=== PATIENT | male | born 1950 | race Caucasian/White ===

== ENCOUNTER → 2016-07-07 | Outpatient (CLI) | payer MEDICARE ==
[~2016-07-07] MED LIST: TORADOL10 MG PO
== END | disposition home or self-care (01) ==
LOC: RAD 07-06 08:46
DX: M51.36 Other intervertebral disc degeneration, lumbar region (principal); M16.0 Bilateral primary osteoarthritis of hip; M54.41 Lumbago with sciatica, right side; G89.29 Other chronic pain; R20.0 Anesthesia of skin; M25.78 Osteophyte, vertebrae

== ENCOUNTER → 2016-10-01 | Outpatient (CLI) | payer MEDICARE | END | disposition home or self-care (01) | LOC: CARD 09:00 | DX: E11.9 Type 2 diabetes mellitus without complications (principal); Z79.899 Other long term (current) drug therapy ==

== ENCOUNTER 2016-12-22 17:08 | Emergency (ER) | payer OTHER, MEDICARE ==
[~2016-12-22] VITALS: Wt 115.2 kg
[2016-12-22] MEDS ORDERED: CYCLOBENZAPRINE5 M3 PO (19:47)
[2016-12-22] MEDS ORDERED: Motrin,Rufen800 MG PO (19:47)
== END 2016-12-22 23:01 | disposition home or self-care (01) ==
LOC: ED 17:08
DX: S16.1XXA Strain of muscle, fascia and tendon at neck level, initial encounter (principal); Z91.018 Allergy to other foods; V43.52XA Car driver injured in collision with other type car in traffic accident, initial encounter; Y93.89 Activity, other specified; Y92.413 State road as the place of occurrence of the external cause; Y99.8 Other external cause status

== ENCOUNTER → 2017-01-25 | Outpatient (CLI) | payer OTHER ==
[~2017-01-25] MED LIST changes: +CYCLOBENZAPRINE5 M3 PO; +Motrin,Rufen800 MG PO
== END ==
LOC: US 14:30
DX: N43.2 Other hydrocele (principal); I86.1 Scrotal varices; N50.3 Cyst of epididymis

== ENCOUNTER → 2018-07-21 | Outpatient (CLI) | payer MEDICARE | END | disposition home or self-care (01) | LOC: US 06-15 09:30 | DX: M79.661 Pain in right lower leg (principal); R60.0 Localized edema ==

== ENCOUNTER → 2019-04-23 | Outpatient (CLI) | payer MEDICARE ==
--- NOTE | 2019-04-23 15:55 | NUR ---
SPEECH PATHOLOGY Outpatient MBS completed as per orders to determine candidacy for oral feeding. Medical history obtained from retirement records includes anoxic brain damage, pneumonia, respiratory failure, past tracheostomy, dysphagia, G-tube. Patient has been weaned from trach. He remains NPO and reported that he has been fed by tube since Nov 05, 2018. Patient was alert and able to follow commands. Speech was moderately dysarthric requiring careful listening. Oral exam revealed presence of natural teeth with top back teeth missing. Buccal skills were moderately reduced in strength and lingual skills were moderately reduced in ROM and coordination. Patient was able to volitionally swallow but volitional cough was weak. He was assessed with puree, soft solid and liquids thickened to nectar and honey consistency taken by cup. Results revealed a mild oral and moderate pharyngeal stage dysphagia characterized by slow mastication, mildly reduced tongue to posterior pharyngeal wall contact resulting in pooling in the valleculae. Patient was aware of residue and initiated a secondary swallow which cleared the pharynx. Aspiration occurred during the swallow with thick liquids, with coughing elicited with nectar liquid. Aspiration was silent with honey thick liquid. Recommend patient begin small amounts of pleasure foos consisting of puree and pudding thick liquids. Recommend upright positioning, small bites and sips, use of double swallows and monitoring for s/s aspiration. Results and indu. were shared with patient and he verbalized understanding. A written copy of indu. was provided for education of retirement staff. Follow up therapy is recommended at the [facility] to ensure safety of intake and progression of diet if tolerated. Dictated report to follow. Thank you for this referral. LUPILLO JACKSON MS[employer]-FOLDER GLUER OPERATOR
== END | disposition home or self-care (01) ==
LOC: RAD/SH 13:27
DX: R13.19 Other dysphagia (principal)

== ENCOUNTER 2019-09-16 13:51 | Inpatient (IN) | payer MEDICARE ==
[~2019-09-16] VITALS: Ht 182.9 cm; Wt 94.9 kg
[2019-09-16] VITALS (7 sets, daily range): BP systolic 81–91; BP diastolic 46–57
[2019-09-16 14:32] LABS: HEMATOCRIT 39.6 % (42.0-52.0); MEAN CELL VOLUME 86.8 fl (80.0-94.0); MEAN CORPUSCULAR HGB 27.9 pg (27.0-31.0); MEAN CORPUSCULAR HGB CONC 32.1 g/dl (33.0-37.0); MEAN PLATELET VOLUME 9.9 fl (9.6-12.3); PLATELET COUNT AUTOMATED 249 10*3/uL (130-400); RED BLOOD COUNT 4.56 10*6/uL (4.50-5.90); RED CELL DISTRI WIDTH 15.9 % (0-14.5); WHITE BLOOD COUNT 18.3 10*3/uL (4.8-10.8)
[2019-09-16 14:49] LABS: BASOPHILS 1 % (0-1); PLATELET SUFFICIENCY NORMAL (NORMAL); TOTAL CELLS COUNTED 100 #CELLS
[2019-09-16 14:52] LABS: ALBUMIN 2.6 gm/dl (3.1-4.5); ALKALINE PHOSPHATASE 77 U/L (45-117); BUN 22 mg/dl (7-24); CHLORIDE 100 mmol/L (98-107); CREATININE 1.18 mg/dL (0.70-1.30); POTASSIUM 4.4 mmol/L (3.5-5.1); SGOT/AST 28 IU/L (3-35); SGPT/ALT 51 U/L (12-78); SODIUM 135 mmol/L (136-145); TOTAL PROTEIN 7.8 gm/dL (6.4-8.2)
[2019-09-16 15:15] LABS: BILIRUBIN NEGATIVE (NEGATIVE); CLARITY CLOUDY (CLEAR); COLOR YELLOW (YELLOW); GLUCOSE NEGATIVE (NEGATIVE); KETONE NEGATIVE (NEGATIVE); SPECIFIC GRAVITY 1.005 (1.005-1.030)
[2019-09-16 15:16] LABS: BACTERIA 4+; BLOOD 2+ (NEGATIVE); LEUKO ESTERASE 2+ (NEGATIVE); MUCOUS 1+; NITRITE NEGATIVE (NEGATIVE); PH 8.5 (5.0-9.0); TRIP PHOS CRYSTALS 1+; UROBILINOGEN 0.2 E.U./dl (0.2-1.0); WBC TNTC wbc/hpf (0-5)
[2019-09-16] MEDS ORDERED: AVPAK AZITHROM250 MG PO (18:55)
[2019-09-16] MEDS ORDERED: CEFDINIR250 MG/5 M PEG (18:56)
[2019-09-16] MEDS ORDERED: Ipratropium Brom3 ML INH (18:57)
[2019-09-16] MEDS ORDERED: LANSOPRAZOLE30 MG PO (18:59)
[2019-09-16] MEDS ORDERED: TRAZODONE50 MG PO (18:59)
[2019-09-16] MEDS ORDERED: ZESTRIL10 MG PO (19:00)
[2019-09-16] MEDS ORDERED: PROZAC10 MG PO (19:02)
[2019-09-16] MEDS ORDERED: METOCLOPRAMIDE H5 M2 PO (19:03)
[2019-09-16] MEDS ORDERED: LIPITOR20 MG PO (19:03)
[2019-09-16] MEDS ORDERED: TYLENOL325 M2 PO (20:52)
[2019-09-16] MEDS ORDERED: VENTOLIN 02.5 MG/3 M INH (20:54)
[2019-09-16] MEDS ORDERED: ANTIFUNGAL C14.18 GM T (20:55)
[2019-09-16] MEDS ORDERED: BASAG SOL SC (21:02)
[2019-09-16] MEDS ORDERED: DULCOLAX10 M1 R (21:03)
[2019-09-16] MEDS ORDERED: CALCIUM 500 MG1 EACH PEG (21:06)
[2019-09-16] MEDS ORDERED: VITAMIN D3125 MCG PEG (21:08)
[2019-09-16] MEDS ORDERED: DOK100 M1 PEG (21:09)
[2019-09-16] MEDS ORDERED: FLEET ENEMA EX230 M1 R (21:18)
[2019-09-16] MEDS ORDERED: AMMONIUM LACTA385 GM T (21:20)
[2019-09-16] MEDS ORDERED: LIDOCAINE PAIN1 EACH T (21:22)
[2019-09-16] MEDS ORDERED: MELATONIN5 M1 PEG (21:23)
[2019-09-16] MEDS ORDERED: MOM30 M1 PEG (21:24)
[2019-09-16] MEDS ORDERED: NORCO 5-325 TA1 EACH PO (21:25)
[2019-09-16] MEDS ORDERED: PERIDEX118 ML MM (21:25)
[2019-09-16] MEDS ORDERED: ZOFRAN4 MG PO (21:27)
[2019-09-17] VITALS (7 sets, daily range): BP systolic 92–107; BP diastolic 46–70
[2019-09-17 05:20] LABS: BUN 23 mg/dl (7-24); CHLORIDE 105 mmol/L (98-107); CREATININE 0.99 mg/dL (0.70-1.30); POTASSIUM 4.2 mmol/L (3.5-5.1); SODIUM 137 mmol/L (136-145)
[2019-09-17 05:26] LABS: THYROID STIM HORMONE (HS) 0.839 uIU/ml (0.358-4.75)
[2019-09-17 06:23] LABS: BASO # 0.1 10*3/uL (0.0-0.1); BASO % 0.5 % (0.0-1.0); EOS % 0.1 % (1.0-4.0); HEMATOCRIT 38.2 % (42.0-52.0); LYMPH # 1.1 10*3/uL (1.3-4.4); LYMPH % 9.6 % (27.0-41.0); MEAN CELL VOLUME 88.8 fl (80.0-94.0); MEAN CORPUSCULAR HGB 27.9 pg (27.0-31.0); MEAN CORPUSCULAR HGB CONC 31.4 g/dl (33.0-37.0); MEAN PLATELET VOLUME 10.9 fl (9.6-12.3); MONO # 1.1 10*3/uL (0.1-1.0); MONO % 9.7 % (3.0-9.0); NEUT # 9.4 10*3/uL (2.3-7.9); NEUT % 79.5 % (47.0-73.0); PLATELET COUNT AUTOMATED 250 10*3/uL (130-400); WHITE BLOOD COUNT 11.8 10*3/uL (4.8-10.8)
[2019-09-17 20:56] LABS: BILIRUBIN NEGATIVE (NEGATIVE); BLOOD 3+ (NEGATIVE); CLARITY CLOUDY (CLEAR); COLOR YELLOW (YELLOW); GLUCOSE NEGATIVE (NEGATIVE); KETONE NEGATIVE (NEGATIVE); LEUKO ESTERASE 3+ (NEGATIVE); NITRITE NEGATIVE (NEGATIVE); UROBILINOGEN 0.2 E.U./dl (0.2-1.0)
[2019-09-17 21:01] LABS: RBC 51-100 rbc/hpf (0-2); WBC 51-100 wbc/hpf (0-5)
[2019-09-17 21:02] LABS: BACTERIA 4+; MUCOUS 1+
[2019-09-18 04:00] VITALS: BP 112/54; BP 112/68
[2019-09-18 07:02] LABS: BASO # 0.1 10*3/uL (0.0-0.1); BASO % 0.8 % (0.0-1.0); EOS # 0.1 10*3/uL (0.0-0.4); EOS % 1.6 % (1.0-4.0); HEMATOCRIT 39.5 % (42.0-52.0); LYMPH # 0.9 10*3/uL (1.3-4.4); MEAN CELL VOLUME 89.4 fl (80.0-94.0); MEAN CORPUSCULAR HGB 27.8 pg (27.0-31.0); MEAN CORPUSCULAR HGB CONC 31.1 g/dl (33.0-37.0); MEAN PLATELET VOLUME 10.6 fl (9.6-12.3); MONO % 16.6 % (3.0-9.0); NEUT # 4.1 10*3/uL (2.3-7.9); NEUT % 65.5 % (47.0-73.0); PLATELET COUNT AUTOMATED 247 10*3/uL (130-400); RED BLOOD COUNT 4.42 10*6/uL (4.50-5.90); RED CELL DISTRI WIDTH 15.7 % (0-14.5); WHITE BLOOD COUNT 6.2 10*3/uL (4.8-10.8)
[2019-09-18 07:31] LABS: ALBUMIN 2.2 gm/dl (3.1-4.5); ALKALINE PHOSPHATASE 84 U/L (45-117); BUN 16 mg/dl (7-24); CHLORIDE 106 mmol/L (98-107); CREATININE 0.56 mg/dL (0.70-1.30); POTASSIUM 4.1 mmol/L (3.5-5.1); SGOT/AST 23 IU/L (3-35); SGPT/ALT 51 U/L (12-78); SODIUM 140 mmol/L (136-145); TOTAL PROTEIN 7.3 gm/dL (6.4-8.2)
[2019-09-18 08:00] VITALS: BP 104/66
[2019-09-18 12:00] VITALS: BP 113/72
[2019-09-18 16:00] VITALS: BP 114/64
[2019-09-18 20:00] VITALS: BP 107/63
[2019-09-19] VITALS: BP 110/60
[2019-09-19 05:14] LABS: BUN 14 mg/dl (7-24); CHLORIDE 108 mmol/L (98-107); CREATININE 0.55 mg/dL (0.70-1.30); SODIUM 143 mmol/L (136-145)
[2019-09-19 06:15] LABS: BASO # 0.1 10*3/uL (0.0-0.1); BASO % 1.2 % (0.0-1.0); EOS # 0.2 10*3/uL (0.0-0.4); EOS % 3.8 % (1.0-4.0); HEMATOCRIT 36.8 % (42.0-52.0); LYMPH % 15.8 % (27.0-41.0); MEAN CELL VOLUME 89.3 fl (80.0-94.0); MEAN CORPUSCULAR HGB 27.2 pg (27.0-31.0); MEAN CORPUSCULAR HGB CONC 30.4 g/dl (33.0-37.0); MEAN PLATELET VOLUME 10.6 fl (9.6-12.3); MONO # 0.7 10*3/uL (0.1-1.0); MONO % 10.7 % (3.0-9.0); NEUT # 4.1 10*3/uL (2.3-7.9); NEUT % 67.8 % (47.0-73.0); PLATELET COUNT AUTOMATED 279 10*3/uL (130-400); RED BLOOD COUNT 4.12 10*6/uL (4.50-5.90); RED CELL DISTRI WIDTH 15.9 % (0-14.5); WHITE BLOOD COUNT 6.1 10*3/uL (4.8-10.8)
[2019-09-19 08:00] VITALS: BP 110/68
[2019-09-19 16:00] VITALS: BP 109/64
[2019-09-19 20:00] VITALS: BP 128/75
[2019-09-20] VITALS: BP 116/61
[2019-09-20 08:00] VITALS: BP 121/80
[2019-09-20] MEDS ORDERED: NORCO 5-325 TA1 EACH PO (09:19)
[2019-09-20] MEDS ORDERED: CEFUROXIME AXE250 MG PO (09:19)
[2019-09-20] MEDS ORDERED: Nystatin 100,000 UNI PO (09:19)
[2019-09-20 12:00] VITALS: BP 124/72
== END 2019-09-20 13:49 | disposition other institution (70) | DRG 871 ==
LOC: ED 13:51 → EDHOLD 16:32 → 4E 16:32 → EDHOLD 17:02 → 4E 18:37
PROVIDERS: Emergency Medicine; Internal Medicine; ADMIT Family Medicine
DX: A41.9 Sepsis, unspecified organism (principal); E43 Unspecified severe protein-calorie malnutrition; T83.511A Infection and inflammatory reaction due to indwelling urethral catheter, initial encounter; E87.1 Hypo-osmolality and hyponatremia; N39.0 Urinary tract infection, site not specified; R65.20 Severe sepsis without septic shock; E11.65 Type 2 diabetes mellitus with hyperglycemia; Z20.828 Contact with and (suspected) exposure to other viral communicable diseases; D64.9 Anemia, unspecified; K21.9 Gastro-esophageal reflux disease without esophagitis; J44.9 Chronic obstructive pulmonary disease, unspecified; E78.5 Hyperlipidemia, unspecified; D50.9 Iron deficiency anemia, unspecified; G89.29 Other chronic pain; I10 Essential (primary) hypertension; E87.8 Other disorders of electrolyte and fluid balance, not elsewhere classified; F32.9 Major depressive disorder, single episode, unspecified; B96.4 Proteus (mirabilis) (morganii) as the cause of diseases classified elsewhere; Z79.4 Long term (current) use of insulin; Z93.1 Gastrostomy status; Z87.820 Personal history of traumatic brain injury; Z86.74 Personal history of sudden cardiac arrest; Z88.8 Allergy status to other drugs, medicaments and biological substances; Z91.018 Allergy to other foods; Z79.899 Other long term (current) drug therapy; Z79.84 Long term (current) use of oral hypoglycemic drugs; Z68.28 Body mass index [BMI] 28.0-28.9, adult

== ENCOUNTER → 2019-10-25 | Day surgery (SDC) | payer MEDICARE ==
[~2019-10-25] VITALS: Ht 180.3 cm; Wt 81.2 kg
[~2019-10-25] MED LIST changes: +AMMONIUM LACTA385 GM T; +ANTIFUNGAL C14.18 GM T; +AVPAK AZITHROM250 MG PO; +BASAG SOL SC; +CALCIUM 500 MG1 EACH PEG; +CEFDINIR250 MG/5 M PEG; +CEFUROXIME AXE250 MG PO; +DOK100 M1 PEG; +DULCOLAX10 M1 R; +FLEET ENEMA EX230 M1 R; +Ipratropium Brom3 ML INH; +LANSOPRAZOLE30 MG PO; +LIDOCAINE PAIN1 EACH T; +LIPITOR20 MG PO; +MELATONIN5 M1 PEG; +METOCLOPRAMIDE H5 M2 PO; +MOM30 M1 PEG; +NORCO 5-325 TA1 EACH PO; +Nystatin 100,000 UNI PO; +PERIDEX118 ML MM; +PROZAC10 MG PO; +TRAZODONE50 MG PO; +TYLENOL325 M2 PO; +VENTOLIN 02.5 MG/3 M INH; +VITAMIN D3125 MCG PEG; +ZESTRIL10 MG PO; +ZOFRAN4 MG PO
[2019-10-25 08:39] VITALS: BP 106/73
[2019-10-25 09:28] VITALS: BP 122/70
[2019-10-25 09:45] VITALS: BP 122/68
[2019-10-25 10:00] VITALS: BP 127/75
== END | disposition home or self-care (01) ==
LOC: COVID19 10-19 12:00 → SDC 10-19 12:00
DX: K94.23 Gastrostomy malfunction (principal); D64.9 Anemia, unspecified; I10 Essential (primary) hypertension; R19.7 Diarrhea, unspecified; E11.9 Type 2 diabetes mellitus without complications; F41.9 Anxiety disorder, unspecified; F32.9 Major depressive disorder, single episode, unspecified; I25.2 Old myocardial infarction; K21.9 Gastro-esophageal reflux disease without esophagitis; Z82.3 Family history of stroke; Z79.899 Other long term (current) drug therapy

== ENCOUNTER → 2019-11-06 | Outpatient (CLI) | payer MEDICARE ==
[~2019-11-06] MED LIST changes: +AUGMENTIN 875-875 MG PO; -CALCIUM 500 MG1 EACH PEG; +CHOLESTYRAMINE378 GM PO; +DECADRON4 MG PEG; +ELIQUIS5 M1 PEG; +LEVOFLOXACIN750 M2 PO; +NATURE'S BLEND500 M5 PO; +PROTONIX40 MG PO; +PROZAC20 MG PO; +Peridex 473 ML473 ML PO
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
== END | disposition home or self-care (01) ==
LOC: RAD/SH 10:00
PROVIDERS: ATTEND Family Medicine
DX: R13.12 Dysphagia, oropharyngeal phase (principal)

== ENCOUNTER 2019-12-28 10:09 | Emergency (ER) | payer MEDICARE ==
[~2019-12-28] VITALS: Ht 172.7 cm; Wt 86.0 kg
[2019-12-28 10:38] LABS: BASO # 0.1 10*3/uL (0.0-0.1); BASO % 1.3 % (0.0-1.0); EOS # 0.4 10*3/uL (0.0-0.4); EOS % 4.8 % (1.0-4.0); HEMATOCRIT 43.1 % (42.0-52.0); LYMPH # 2.2 10*3/uL (1.3-4.4); LYMPH % 26.6 % (27.0-41.0); MEAN CELL VOLUME 90.9 fl (80.0-94.0); MEAN CORPUSCULAR HGB 29.1 pg (27.0-31.0); MEAN PLATELET VOLUME 9.9 fl (9.6-12.3); MONO # 0.7 10*3/uL (0.1-1.0); MONO % 8.3 % (3.0-9.0); NEUT # 4.9 10*3/uL (2.3-7.9); PLATELET COUNT AUTOMATED 254 10*3/uL (130-400); RED BLOOD COUNT 4.74 10*6/uL (4.50-5.90); RED CELL DISTRI WIDTH 15.6 % (0-14.5); WHITE BLOOD COUNT 8.4 10*3/uL (4.8-10.8)
[2019-12-28 10:53] LABS: ALBUMIN 3.4 gm/dl (3.1-4.5); ALKALINE PHOSPHATASE 82 U/L (45-117); BUN 13 mg/dl (7-24); CHLORIDE 106 mmol/L (98-107); CREATININE 0.57 mg/dL (0.70-1.30); POTASSIUM 4.3 mmol/L (3.5-5.1); SGOT/AST 11 IU/L (3-35); SGPT/ALT 27 U/L (12-78); SODIUM 143 mmol/L (136-145); TOTAL PROTEIN 7.9 gm/dL (6.4-8.2)
== END 2019-12-28 16:00 | disposition other institution (70) ==
LOC: ED 10:09
PROVIDERS: Emergency Medicine
DX: S00.83XA Contusion of other part of head, initial encounter (principal); X58.XXXA Exposure to other specified factors, initial encounter; Y93.89 Activity, other specified; Y92.89 Other specified places as the place of occurrence of the external cause; Y99.8 Other external cause status